=== PATIENT | male | born 1970 | race Caucasian/White ===

== ENCOUNTER 2016-06-23 12:20 | Emergency (ER) | payer OTHER ==
[~2016-06-23] VITALS: Ht 182.9 cm; Wt 102.1 kg
[~2016-06-23 12:20] MED LIST: ANDROGEL1.25 GM TD; CELEBREX 200MG200 MG PO; CIALIS20 MG PO; INVOKAMET1 TA1 PO; LIDODERM1 EACH TP; LOVAZA1 GM PO; METFORMIN HCL1000 MG PO; PERCOCET1 TA1 PO; PRINIVIL10 MG PO; PROMETHAZI PO; TORADOL10 MG PO; TRAMADOL 50MG T50 MG PO; TRIAMCINOL30 GM/TUBE TP; TRILIPIX45 MG PO; VITAMIN D31000 UNIT PO; ZETIA10 MG PO
[2016-06-23 12:49] VITALS: BP 143/82
== END 2016-06-23 12:49 ==
LOC: ER 12:20
DX: Z53.29 Procedure and treatment not carried out because of patient's decision for other reasons (principal); S61.210A Laceration without foreign body of right index finger without damage to nail, initial encounter